=== PATIENT | female | born 1950 | race Caucasian/White ===

== ENCOUNTER 2016-12-21 00:29 | Inpatient (IN) ==
[2016-12-21 00:54] LABS: Basophils # 0.1 K/mcL (0.0-0.2); Basophils % 0.2 %; Eosinophils % 0.1 %; Hematocrit 38.5 % (35.3-44.9); Hemoglobin 12.1 g/dL (11.5-15.4); Immature Granulocytes % 0.6 % (0-4); Immature Platelets 1.4 % (1.1-6.1); Lymphocytes % 8.8 %; Mean Corpuscular HGB Conc 31.4 g/dL (31.6-35.5); Mean Corpuscular Hemoglobin 25.5 pg (28.0-33.3); Mean Corpuscular Volume 81.2 fL (83.0-100.0); Mean Platelet Volume 8.3 fL (9.4-12.4); Monocytes # 1.2 K/mcL (0.0-1.3); Monocytes % 5.2 %; Neutrophils # 19.3 K/mcL (1.6-8.9); Platelet Count 355 K/mcL (140-400); Red Blood Count 4.74 M/mcL (3.82-4.97); Red Cell Distribution Width 14.9 % (11.5-14.5); Segmented Neutrophils % 85.1 %
[2016-12-21 01:07] LABS: BUN/Creatinine Ratio 19 (6-26); Blood Urea Nitrogen 20 mg/dL (7-20); Calcium 9.9 mg/dL (8.6-10.8); Carbon Dioxide 27 mEq/L (19-29); Chloride 98 mEq/L (98-109); Glucose 100 mg/dL (70-99); Osmolality,Calculated 287 (280-300); Potassium 3.5 mEq/L (3.5-4.5); Sodium 137 mEq/L (136-145); eGFR For African Americans > 60 (> 60); eGFR For Non-African Americans 53 (> 60)
[2016-12-21] MEDS ORDERED: Ipratropium/Albuterol Neb 3 ML IH ONE (01:25)
[2016-12-21] MEDS ORDERED: methylPREDNISolone 125 MG/2 ML VIAL IVP ONE (01:26)
[2016-12-21] MEDS ORDERED: 0.9 % Sodium Chloride 1,000 ML IVC ONE ×2 (01:27→02:22)
[2016-12-21 02:07] LABS: Phosphorous 3.5 mg/dL (2.3-4.7)
[2016-12-21] MEDS ORDERED: Levofloxacin 750 MG/150 ML 750 MG/150 ML BAG IVPB ONE (03:52)
--- NOTE | 2016-12-21 04:02 | Emergency Department Note ---
Disposition Clinical Impression: Acute exacerbation of chronic obstructive airways disease, Uncontrolled persistent asthma Disposition: Admitted As Inpatient Condition: Good Time of Disposition: 04:03 General Adult HPI - General Chief complaint: ED Shortness of Breath/Dyspnea Stated complaint: sussy asthma Time Seen by Provider: 12/21/16 01:23 Source: patient Mode of arrival: ambulatory Limitations: no limitations Nursing Notes Reviewed: Yes Vital Signs Reviewed: Yes - History of Present Illness HPI Narrative: 1 week history of increasing shortness of breath. Does have a history of asthma has been using albuterol inhalers with no relief. Is on oxygen at home on 2 L still short of breath. States she has a productive cough that is chronic with a yellow to white sputum. Denies any fevers or chills. Denies any chest pain. Pain Scale: 0 - Related Data Home Medications Medication Instructions Recorded Confirmed Albuterol Sulfate [Ventolin Hfa] 2 puff IH Q4H PRN 11/19/15 06/09/16 Cetirizine HCl [Zyrtec] 10 mg PO DAILY 11/19/15 06/09/16 Cholecalciferol (Vitamin D3) 400 unit PO DAILY 11/19/15 06/09/16 [Vitamin D3] Esomeprazole Magnesium [Nexium] 20 mg PO DAILY 11/19/15 06/09/16 Fluticasone Propionate Nasal 1 spray NS DAILY 11/19/15 06/09/16 [Flonase] Gabapentin [Neurontin] 300 mg PO TID 11/19/15 06/09/16 Lisinopril [Zestril] 5 mg PO DAILY 11/19/15 06/09/16 Mometasone/Formoterol [Dulera 200 2 puff IH BID 11/19/15 06/09/16 Mcg/5 Mcg Inhaler] Montelukast [Singulair] 10 mg PO DAILY 11/19/15 06/09/16 Alendronate Sodium [Fosamax] 70 mg PO GARCIA 02/26/16 06/09/16 Calcium Citrate/Vitamin D3 1 tab PO DAILY 02/26/16 06/09/16 [Calcium Citrate with D Tablet] Ferrous Gluconate [Iron] 256 mg PO DAILY 02/26/16 06/09/16 predniSONE [PredniSONE] 10 mg PO DAILY PRN 02/26/16 06/09/16 Albuterol Neb [Proventil Neb] 2.5 mg IH TID PRN 06/09/16 06/09/16 Allergies Allergy/AdvReac Type Severity Reaction Status Date / Time bacitracin Allergy Rash Verified 06/09/16 07:56 [From Neosporin ([id number])] doxycycline Allergy Rash Verified 06/09/16 07:56 Neomycin Allergy Rash Verified 06/09/16 07:56 [From Neosporin ([id number])] polymyxin B Allergy Rash Verified 06/09/16 07:56 [From Neosporin ([id number])] Sulfa (Sulfonamide Allergy Rash Verified 06/09/16 07:56 Antibiotics) All systems ED: reviewed and negative except as stated. Constitutional: Denies: fever, chills ENT ED: Reports: congestion (Nasal). Denies: throat pain Cardiovascular: Denies: chest pain, palpitations, syncope Respiratory: Reports: cough, dyspnea (For one week), wheezes (Uses inhalers at home.), sputum production (Yellow to light. Normal for her.) Gastrointestinal: Denies: abdominal pain, nausea, vomiting, diarrhea, hematemesis, melena, hematochezia Genitourinary: Denies: urgency, dysuria, frequency, hematuria Musculoskeletal: Denies: back pain, neck pain Integumentary: Denies: rash, abrasion Neurological: Denies: headache, weakness Past Medical History - Past Medical History Attestation: Yes The following information was validated with the patient. Medical history: Reports: asthma, GERD, hypertension, thyroid disease Surgical history: Reports: orthopedic, other Psychiatric history: Reports: no psych history - Social History Smoking Status: Never smoker Smokeless Tobacco Status: No Alcohol use: Reports: none Drug use: Reports: none Physical Exam - General Limitations: no limitations General appearance: alert, in distress (Moderate respiratory distress.) - Head Head exam: atraumatic, normocephalic - Eye Eye exam: Present: normal appearance, PERRL, EOMI. Absent: scleral icterus - ENT ENT exam: normal exam, normal oropharynx, mucous membranes moist - Neck Neck exam: Present: normal inspection, full ROM, trachea midline - Chest Chest inspection: Present: normal inspection, symmetric chest wall rise. Absent : tenderness - Respiratory Respiratory exam: Present: respiratory distress (Moderate), wheezes (Diffusely) , accessory muscle use - Cardiovascular Cardiovascular exam: Present: normal rhythm, tachycardia, normal heart sounds - Abdominal Exam Abdominal exam: Present: soft, Non-Tender, normal bowel sounds. Absent: tenderness, distention, guarding, rebound, rigidity, organomegaly - Extremities Exam Extremities exam: Present: normal inspection, full ROM, normal capillary refill. Absent: tenderness, pedal edema - Back Exam Back exam: Present: normal inspection, full ROM. Absent: tenderness, CVA tenderness (R), CVA tenderness (L) - Neurological Exam Neurological exam: Present: alert, oriented X3 - Psychiatric Psychiatric exam: Present: normal affect, normal mood - Skin Skin exam: Present: warm, dry, intact, normal color. Absent: rash, cyanosis Course Course Narrative: The patient brought back to the room does appear to be in respiratory distress. She is wheezing diffusely. She states she has a history of very bad asthma with a touch of COPD. She has had a thermal bronchial ablation for this. She states that this all started about a week ago she has had a productive cough with white to yellowish sputum. She states this is not abnormal for her to have. She states the last time she was on steroids was over a month ago. She denies any fevers or chills. She denies any chest pain. She reports that she wears 2 L of oxygen at home when she needs that. She is maintaining an oxygen saturation in the low 90s on 4 L. She was given a triple DuoNeb and steroids. This is patient's respiratory distress however she was still maintaining an oxygen saturation in the low 90s on 4 L. She does appear in mild respiratory distress at all times. Her lung sounds have cleared up after the DuoNeb's. There is no signs of pneumonia on her chest x-ray however she does have an elevated white blood cell count. Patient has no signs of peripheral edema. Initially patient had diffuse wheezing throughout all of her lung tran. On reexamination after the DuoNeb this was cleared. Her heart sounds are normal however tachycardic. Abdomen is soft and nontender. She denies any nausea vomiting or diarrhea. She does report some nasal congestion. We will admit patient to the hospital for COPD and asthma exacerbation. Patient is agreeable to this. - Consultations Consultation #1: Dr Be accepted patient in stable condition. Time: 03:30 Vital Signs Temperature 99.2 F 12/21/16 00:31 Pulse Rate 126 12/21/16 00:31 Respiratory Rate 28 12/21/16 00:31 Blood Pressure 147/82 12/21/16 00:31 O2 Sat by Pulse Oximetry 90 12/21/16 00:31 Temperature 98.6 F 12/21/16 04:42 Pulse Rate 101 12/21/16 04:42 Respiratory Rate 18 12/21/16 04:42 Blood Pressure 137/73 12/21/16 04:42 O2 Sat by Pulse Oximetry 92 12/21/16 04:42 Oxygen Delivery Oxygen Delivery Nasal Cannula Medical Decision Making - Medical Records Medical records reviewed: Yes I reviewed the patient's medical records. - Lab Data Lab results reviewed: Yes I reviewed the patient's lab results. Result diagrams: 12/21/16 00:48 12/21/16 00:48 Lab Results 12/21/16 12/21/16 12/21/16 Range/Units 00:48 00:48 00:48 WBC 22.7 H (4.3-11.1) K/mcL RBC 4.74 (3.82-4.97) M/mcL Hgb 12.1 (11.5-15.4) g/dL Hct 38.5 (35.3-44.9) % MCV 81.2 L (83.0-100.0) fL MCH 25.5 L (28.0-33.3) pg MCHC 31.4 L (31.6-35.5) g/dL RDW 14.9 H (11.5-14.5) % Plt Count 355 (140-400) K/mcL MPV 8.3 L (9.4-12.4) fL Immature Gran % 0.6 (0-4) % Seg Neutrophils % 85.1 % Lymphocytes % 8.8 % Monocytes % 5.2 % Eosinophils % 0.1 % Basophils % 0.2 % Neutrophils # 19.3 H (1.6-8.9) K/mcL Lymphocytes # 2.0 (0.6-4.6) K/mcL Monocytes # 1.2 (0.0-1.3) K/mcL Eosinophils # 0.0 (0.0-0.6) K/mcL Basophils # 0.1 (0.0-0.2) K/mcL Immature Plt Fraction 1.4 (1.1-6.1) % Sodium 137 (136-145) mEq/L Potassium 3.5 (3.5-4.5) mEq/L Chloride 98 (98-109) mEq/L Carbon Dioxide 27 (19-29) mEq/L BUN 20 (7-20) mg/dL Creatinine 1.04 (0.57-1.11) mg/dL Est GFR ( Amer) > 60 (> 60) Est GFR (Non-Af Amer) 53 L (> 60) BUN/Creatinine Ratio 19 (6-26) Glucose 100 H (70-99) mg/dL Calculated Osmolality 287 (280-300) Lactic Acid (0.5-2.2) mmol/L Calcium 9.9 (8.6-10.8) mg/dL Phosphorus (2.3-4.7) mg/dL Magnesium (1.6-2.6) mg/dL Troponin I 0.00 (0-0.03) ng/mL B-Natriuretic Peptide (0-100) pg/mL 12/21/16 12/21/16 12/21/16 Range/Units 00:48 01:47 01:47 WBC (4.3-11.1) K/mcL RBC (3.82-4.97) M/mcL Hgb (11.5-15.4) g/dL Hct (35.3-44.9) % MCV (83.0-100.0) fL MCH (28.0-33.3) pg MCHC (31.6-35.5) g/dL RDW (11.5-14.5) % Plt Count (140-400) K/mcL MPV (9.4-12.4) fL Immature Gran % (0-4) % Seg Neutrophils % % Lymphocytes % % Monocytes % % Eosinophils % % Basophils % % Neutrophils # (1.6-8.9) K/mcL Lymphocytes # (0.6-4.6) K/mcL Monocytes # (0.0-1.3) K/mcL Eosinophils # (0.0-0.6) K/mcL Basophils # (0.0-0.2) K/mcL Immature Plt Fraction (1.1-6.1) % Sodium (136-145) mEq/L Potassium (3.5-4.5) mEq/L Chloride (98-109) mEq/L Carbon Dioxide (19-29) mEq/L BUN (7-20) mg/dL Creatinine (0.57-1.11) mg/dL Est GFR ( Amer) (> 60) Est GFR (Non-Af Amer) (> 60) BUN/Creatinine Ratio (6-26) Glucose (70-99) mg/dL Calculated Osmolality (280-300) Lactic Acid 0.9 (0.5-2.2) mmol/L Calcium (8.6-10.8) mg/dL Phosphorus 3.5 (2.3-4.7) mg/dL Magnesium 2.0 (1.6-2.6) mg/dL Troponin I (0-0.03) ng/mL B-Natriuretic Peptide 10 (0-100) pg/mL - Radiology Data Radiology results reviewed: Yes I reviewed the patient's radiology results. Chest X-Ray 12/21/16 00:35 IMPRESSION: No acute disease. D/ / Avi Abraham MD / Avi Abraham MD Interpreting Provider: Avi Abraham MD - EKG Data EKG #1 EKG attestation: Yes I reviewed and interpreted this EKG. EKG results narrative: Time: 00: 44 Sinus tachycardia at a rate of 124. MN interval is 120. Respirations 89. QT is 336. QTC is 410. No signs of acute ischemia however there is a significant amount of artifact. No significant changes from previous EKG dated 01/04/2016. She was tachycardic at that time as well. EKG #2 EKG attestation: Yes I reviewed and interpreted this EKG. EKG results narrative: Time: 2: 26 Sinus tachycardia at a rate of 1:15. MN interval is 127. QRS duration is 95. QT is 292. QTC is 360. No signs of acute ischemia. No significant changes from previous EKG dated 01/04/2016. Attestation Statement - Attestation Attestation: I personally interviewed and examined this patient and my medical decision- making was reviewed with the ED Resident Physician, Dr. Zuleta. I agree with the documented findings, disposition and treatment plan as described except to the extent set forth below. Patient is a 58-year-old white female with a history of COPD/asthma who presents to the emergency department with gradual worsening shortness of breath over the past 24 hours. Patient denies any fevers or chills, no production of sputum, no chest pain heaviness or pressure, no nausea vomiting or posttussive emesis. Patient has no prior cardiac history. She is on oxygen at home on an as-needed basis. She states the last time she was on steroids was possibly 2 months ago. She has had no recent hospitalizations. She arrived tachycardic with a sinus tachycardia and hypoxia on room air. Patient received IV fluids on arrival for tachycardia was placed on continuous monitoring and pulse ox and placed on nasal cannula oxygen with improvement of her O2 sats to 96%. Patient received breathing treatments, steroids IV, lab evaluation as well as 2 view chest x-ray for further evaluation. EKG showed a sinus tachycardia with no acute ST or T-wave changes. I agree with Dr. Zuleta physical exam findings as documented. Patient was some improvement following aerosols and steroids IV. Patient does have a significant leukocytosis with left shift. Patient denies any recent steroid use or chronic steroid use. Chest x-ray shows no acute infiltrates or abnormalities. Patient was started on IV antibiotics and admitted for further evaluation and treatment of an acute exacerbation of her COPD/asthma. Patient' s tachycardia improved after first liter of fluids, second liter was initiated. Discussed case with hospitalist who accepted patient for admission.
[2016-12-21] MEDS ORDERED: Acetaminophen 325 MG TABLET PO PRN (04:23)
[2016-12-21] MEDS ORDERED: Ondansetron 4 MG/2 ML VIAL IVP PRN (04:23)
[2016-12-21] MEDS ORDERED: Naloxone 0.4 MG/ML INJ IVP PRN (04:23)
[2016-12-21] MEDS ORDERED: 0.9 % Sodium Chloride 1,000 ML IVC SCH (04:30)
--- NOTE | 2016-12-21 04:54 | Internal Med History&Physical ---
Date of Encounter: 12/21/16 Time of Encounter: 04:52 Assessment and Plan (1) Asthma Current visit: Yes Status: Acute Patient has severe persistent asthma for which she requires steroids most of the days. She uses breathing treatments at home every 6 hours [id number]. She has had worsening of her symptoms over the last 1-1/2 weeks brought on by an upper respiratory illness which is likely a viral infection. Examination reveals clear breath sounds with reduced breath sounds bilaterally. No wheezing present. Patient has tachycardia. Not using accessory muscles of respiration. Laboratory data reveals leukocytosis. Chest x-ray is personally reviewed and does not reveal any infiltrate. Patient be admitted to inpatient status. Expect the patient to be in the hospital for at least 2 midnights. High risk due to risk of worsening asthma exacerbation and respiratory failure which may require intubation and mechanical ventilation. Expected discharge disposition is to home. Patient will be placed on intravenous steroids. These will be tapered to by mouth route depending on her clinical progress. Patient does not have any infiltrate on the x-ray suggestive of pneumonia. No fever or chills. Leukocytosis is most likely related to asthma exacerbation. Patient has received 1 dose of Levaquin in the emergency department. We will hold off on further antibiotic therapy and monitor the patient off antibiotics. If the patient's condition worsens clinically, we will consider starting the patient is on antibiotic therapy. DuoNeb's [id number] Qualifiers: Asthma severity: severe persistent Asthma complication type: with acute exacerbation Qualified Code(s): J45.51 - Severe persistent asthma with (acute ) exacerbation (2) Respiratory failure Current visit: Yes Status: Acute Patient has oxygen at home that she uses only as needed. Currently, patient has hypoxia which has required the need for oxygen supplementation around the clock. This is due to asthma exacerbation. Management as above. Qualifiers: Chronicity: acute Respiratory failure complication: hypoxia Qualified Code(s): J96.01 - Acute respiratory failure with hypoxia (3) HTN (hypertension) Current visit: Yes Status: Chronic Control blood pressure. Continue home medication of HCTZ. Qualifiers: Hypertension type: essential hypertension Qualified Code(s): I10 - Essential (primary) hypertension Internal Medicine - H&P: HPI Chief complaint: Shortness of breath Admitted From: Emergency Dept Plans for Post Hospital Care: Home History of present illness: Ms. Saha is a 66 year old female with a history of severe persistent asthma who underwent endobronchial [place] [address] Harden presents to the emergency department due to shortness of breath. Patient states that the current episode started about one and half weeks ago with runny nose, nasal congestion, postnasal drip. Later, she started having cough which was mostly dry but was also productive of yellow and white thick sputum. She also reports shortness of breath that worsens with exertion. She states that she has a pulse oximeter at home. Since the bronchial thermoplasty, her saturations have been 98% on room air. However, over the last 2 days, with minimal activity, her saturations have dropped into the 80s and they returned to 92% with rest. She has oxygen at home which she uses only as needed. She has required to use oxygen over the last 2 days. She reports chest tightness but denies any chest pain. She reports feeling lightheaded which worsens with activity. She reports some headache. She denies any fever or chills. She denies any abdominal pain, nausea, vomiting, diarrhea or constipation. She reports palpitations. She denies any recent weight changes or changes in her appetite. She denies any urinary symptoms or swelling in her legs. She states that she has prednisone at home that she uses as needed. Whenever she has a flareup, she starts taking for 10 mg tablets and eventually tapers herself off it as instructed by her paint and table edger. However, during the current episode that started 1-1/2 weeks ago, she did not feel the need to start steroids and attributes the current worsening to that decision. Past Med Surg Social Fam HX - Past Medical History Medical history: asthma, GERD, hypertension, thyroid disease Psychiatric history: no psych history - Past Surgical History Surgical History: orthopedic, other - Social History Smoking Status: Never smoker Smokeless Tobacco Status: No Alcohol use: none Drug use: none Occupational status: retired Current living situation: Home - Independent Activity Level: Independent ambulation Recent Out of Country Travel Within the Last 8 Weeks: No Exposure or Possible Exposure to Illness During Travel: No - Family History Father Living Status: Hx Family Cardiac Disorders: Yes Hx Family Respiratory Disorders: Yes (asthma, lung disease) Mother Living Status: Hx Family Cardiac Disorders: Yes Internal Medicine - H&P: Meds Albuterol Sulfate [Ventolin Hfa] 2 puff IH Q4H PRN 11/19/15 [History] Cetirizine HCl [Zyrtec] 10 mg PO DAILY 11/19/15 [History] Cholecalciferol (Vitamin D3) [Vitamin D3] 400 unit PO DAILY 11/19/15 [History] Esomeprazole Magnesium [Nexium] 20 mg PO DAILY 11/19/15 [History] Fluticasone Propionate Nasal [Flonase] 1 spray NS DAILY 11/19/15 [History] Gabapentin [Neurontin] 300 mg PO TID 11/19/15 [History] Lisinopril [Zestril] 5 mg PO DAILY 11/19/15 [History] Mometasone/Formoterol [Dulera 200 Mcg/5 Mcg Inhaler] 2 puff IH BID 11/19/15 [ History] Montelukast [Singulair] 10 mg PO DAILY 11/19/15 [History] Alendronate Sodium [Fosamax] 70 mg PO GARCIA 02/26/16 [History] Calcium Citrate/Vitamin D3 [Calcium Citrate with D Tablet] 1 tab PO DAILY [History] Ferrous Gluconate [Iron] 256 mg PO DAILY 02/26/16 [History] predniSONE [PredniSONE] 10 mg PO DAILY PRN 02/26/16 [History] Albuterol Neb [Proventil Neb] 2.5 mg IH TID PRN 06/09/16 [History] Allergies bacitracin [From Neosporin ([id number])] Allergy (Verified 06/09/16 07:56) Rash doxycycline Allergy (Verified 06/09/16 07:56) Rash Neomycin [From Neosporin ([id number])] Allergy (Verified 06/09/16 07:56) Rash polymyxin B [From Neosporin ([id number])] Allergy (Verified 06/09/16 07:56) Rash Sulfa (Sulfonamide Antibiotics) Allergy (Verified 06/09/16 07:56) Rash All Systems PM: A 10-system review of systems was performed and is negative for pertinent findings except as documented above in the HPI. Review of systems: 10 systems have been reviewed and are negative except as mentioned in the history of present illness - Constitutional Vitals: Temp Pulse Resp BP Pulse Ox 98.6 F 101 18 137/73 92 12/21/16 04:42 05/31/17 04:42 12/21/16 04:42 12/21/16 04:42 12/21/16 04:42 Exam: Gen.: Lying in bed. Mild to moderate distress. Eyes: Pupils equal, round and reactive to light. Extraocular muscles intact. ENT: Moist mucous membranes. No oropharyngeal erythema or discharge. Chest: Clear to auscultation bilaterally. No adventitious sounds present. Reduced air entry bilaterally. Not using accessory muscles of respiration. CVS: First and second heart sounds present. No murmurs, rubs or gallops. Tachycardia present. Abdomen: Soft, nontender, nondistended. Bowel sounds present. No hepatosplenomegaly. Skin: No decubitus ulcers appreciated. ENERGY PROJECT ENGINEER: No focal neuro deficits present. Psychiatric: Alert, awake and oriented to time, place and person. Lymphatic system: No lymphadenopathy appreciated Internal Med - H&P Results - Labs CBC & Chem 7: 12/21/16 00:48 12/21/16 00:48 - EKG Data -: EKG Interpreted by Myself EKG shows normal: sinus rhythm Rate: tachycardia - Diagnostic Studies Chest x-ray Status: image reviewed by me (No acute infiltrates or abnormalities detected)
[2016-12-21] MEDS: methylPREDNISolone 125 MG/2 ML VIAL IVP SCH ×2 (06:15→17:18)
[2016-12-21] MEDS: *HR* Heparin 5,000 UNIT/ML VIAL SQ SCH ×3 (06:16→21:20)
[2016-12-21] MEDS: Loratadine 10 MG TABLET PO SCH (08:07)
[2016-12-21] MEDS: hydroCHLOROthiazide 25 MG TABLET PO SCH (08:08)
[2016-12-21 08:20] LABS: Basophils % 0.2 %; Hematocrit 33.3 % (35.3-44.9); Lymphocytes # 0.3 K/mcL (0.6-4.6); Lymphocytes % 1.4 %; Mean Corpuscular HGB Conc 30.9 g/dL (31.6-35.5); Mean Corpuscular Hemoglobin 25.5 pg (28.0-33.3); Mean Corpuscular Volume 82.4 fL (83.0-100.0); Mean Platelet Volume 8.5 fL (9.4-12.4); Monocytes # 0.2 K/mcL (0.0-1.3); Neutrophils # 17.7 K/mcL (1.6-8.9); Platelet Count 250 K/mcL (140-400); Red Blood Count 4.04 M/mcL (3.82-4.97); Red Cell Distribution Width 14.9 % (11.5-14.5); Segmented Neutrophils % 96.4 %
[2016-12-21 08:21] LABS: Hemoglobin 10.3 g/dL (11.5-15.4)
[2016-12-21 08:28] LABS: BUN/Creatinine Ratio 20 (6-26); Blood Urea Nitrogen 17 mg/dL (7-20); Calcium 8.5 mg/dL (8.6-10.8); Carbon Dioxide 27 mEq/L (19-29); Chloride 101 mEq/L (98-109); Glucose 211 mg/dL (70-99); Magnesium 1.9 mg/dL (1.6-2.6); Osmolality,Calculated 290 (280-300); Phosphorous 3.1 mg/dL (2.3-4.7); Potassium 3.5 mEq/L (3.5-4.5); Sodium 136 mEq/L (136-145); eGFR For African Americans > 60 (> 60); eGFR For Non-African Americans > 60 (> 60)
[2016-12-21] MEDS: Ipratropium/Albuterol Neb 3 ML IH SCH ×3 (10:19→22:31)
[2016-12-21] MEDS ORDERED: Fluticasone Propionate Nasal 50 MCG/SPRAY BOTTLE NS PRN (11:16)
--- NOTE | 2016-12-21 11:16 | Internal Med Progress Note ---
Date of Encounter: 12/21/16 Time of Encounter: 11:14 - Subjective Interval history: No distress at this time - Constitutional Vitals: Temp Pulse Resp BP Pulse Ox 97.8 F 91 18 124/69 93 12/21/16 07:03 12/21/16 07:03 12/21/16 07:03 12/21/16 10:00 12/21/16 07:58 General appearance: Present: cooperative, A&O X 3, pleasant, no acute distress ( over weight), answers questions appropriately - Head Head exam: Present: atraumatic, normocephalic - Eye Eye exam: Present: normal appearance, conjuntiva pink, sclera anicteric - Respiratory Respiratory exam: Present: CTAB. Absent: respiratory distress, wheezes - Cardiovascular Cardiovascular exam: Present: RRR, +S1, +S2. Absent: diastolic murmur, gallop, rubs, systolic murmur - GI/Abdominal GI/Abdominal exam: Present: normal bowel sounds, soft, no peritoneal signs. Absent: distended, tenderness - Extremities Exam Extremities exam: Present: warm, radial pulses palpable and symetrical. Absent : calf tenderness, pedal edema - Neurological Exam Neurological exam: Present: alert, oriented X3 - Psychiatric Psychiatric exam: Present: normal affect, normal mood Internal Medicine: Result - Labs CBC & Chem 7: 12/21/16 07:58 12/21/16 07:58 Labs: Short CBC 12/21/16 Range/Units 07:58 WBC 18.3 H (4.3-11.1) K/mcL Hgb 10.3 L D (11.5-15.4) g/dL Hct 33.3 L (35.3-44.9) % Plt Count 250 (140-400) K/mcL Neutrophils # 17.7 H (1.6-8.9) K/mcL BMP 12/21/16 07:58 Sodium 136 Potassium 3.5 Chloride 101 Carbon Dioxide 27 BUN 17 Creatinine 0.85 Glucose 211 H Calcium 8.5 L Consult Discharge Plan - Plan Referrals: Ivy Lambert, [facility] [Primary Care Provider] -
[2016-12-21 11:56] LABS: Hemoglobin A1C 5.5 %
[2016-12-21 12:15] LABS: Bilirubin,Urine Negative (Negative); Blood,Urine Negative (Negative); Clarity,Urine Clear (Clear); Color,Urine Yellow (Yellow); Glucose,Urine (UA) Normal (Normal); Ketones,Urine Negative (Negative); Leukocyte Esterase,Urine Small (Negative); Nitrite,Urine Negative (Negative); PH,Urine 5.5 pH Units (5.0-8.0); Protein,Urine Negative (Neg-Trace); Specific Gravity,Urine 1.014 (1.010-1.025); Urobilinogen,Urine Normal (Normal)
[2016-12-21 12:33] LABS: Squamous Epithelial Cell,Urine Few per lpf (None-Few); WBC,Urine 0-3 per hpf (0-3)
[2016-12-21 12:34] LABS: RBC,Urine 0-3 per hpf (0-3)
[2016-12-21] MEDS ORDERED: Albuterol 2.5 MG/3 ML NEBULIZER IH PRN (12:37)
--- NOTE | 2016-12-21 15:08 | Event Note ---
Date of Encounter: 12/21/16 Time of Encounter: 11:14 Patient seen and examined at bedside. rEsting in bed and reports of feeling better. admitted for asthma exacerbation will continue IV steroids no signs of infectious etiology present continue to monitor off abx O2 supplementation as needed will continue to monitor
[2016-12-21] MEDS: Gabapentin 300 MG CAPSULE PO SCH ×2 (15:31→21:20)
--- NOTE | 2016-12-21 15:53 | Electrocardiograph Report ---
[address] [address] Test Date: 2016-12-21 Pat Name: Basia Saha Department: 104 Room: 2A25 Gender: F Job Developer: DAWIT : 1950 Requested By: Alejandra Rodriguez Order Number: [id number] Reading MD: Joshua Zabala MD Measurements Intervals [place] Rate: 124 P: 58 OR: 120 QRS: 64 QRSD: 89 T: -2 QT: 336 QTc: 410 Interpretive Statements SINUS TACHYCARDIA BASELINE ARTIFACT COMPLICATES ACCURATE INTERPRETATION Electronically Signed On 12-21-2016 15:51:34 EDT by Joshua Zabala MD
--- NOTE | 2016-12-21 15:54 | Electrocardiograph Report ---
[address] [place], [place] [address] Test Date: 2016-12-21 Pat Name: Basia Saha Department: 105 Room: 2A25 Gender: F Roller Mill Tender: EKP : 1950 Requested By: Mragie Zuleta Order Number: [id number] Reading MD: Joshua Zabala MD Measurements Intervals [place] Rate: 115 P: 56 RI: 127 QRS: 59 QRSD: 95 T: 3 QT: 292 QTc: 360 Interpretive Statements SINUS TACHYCARDIA WITH OCCASIONAL SUPRAVENTRICULAR PREMATURE COMPLEXES Electronically Signed On 12-21-2016 15:52:50 EDT by Joshua Zabala MD
[2016-12-22 03:43] LABS: Basophils % 0.1 %; Hematocrit 33.9 % (35.3-44.9); Hemoglobin 10.4 g/dL (11.5-15.4); Immature Granulocytes % 1.7 % (0-4); Lymphocytes # 0.6 K/mcL (0.6-4.6); Lymphocytes % 3.1 %; Mean Corpuscular HGB Conc 30.7 g/dL (31.6-35.5); Mean Corpuscular Hemoglobin 25.2 pg (28.0-33.3); Mean Corpuscular Volume 82.3 fL (83.0-100.0); Mean Platelet Volume 8.3 fL (9.4-12.4); Monocytes # 0.6 K/mcL (0.0-1.3); Monocytes % 3.1 %; Neutrophils # 18.1 K/mcL (1.6-8.9); Platelet Count 262 K/mcL (140-400); Red Blood Count 4.12 M/mcL (3.82-4.97); Red Cell Distribution Width 14.6 % (11.5-14.5)
[2016-12-22] MEDS: Ipratropium/Albuterol Neb 3 ML IH SCH ×4 (03:52→21:32)
[2016-12-22 03:56] LABS: Magnesium 2.1 mg/dL (1.6-2.6)
[2016-12-22 03:59] LABS: Alanine Aminotransferase 11 Units/L (0-55); Albumin 2.7 g/dL (3.5-5.0); Albumin/Globulin Ratio 0.7 (1.1-2.2); Alkaline Phosphatase 75 Units/L (38-126); Aspartate Amino Transferase 9 Units/L (5-34); BUN/Creatinine Ratio 17 (6-26); Bilirubin,Total 0.2 mg/dL (0.2-1.2); Blood Urea Nitrogen 17 mg/dL (7-20); Calcium 9.3 mg/dL (8.6-10.8); Carbon Dioxide 28 mEq/L (19-29); Chloride 100 mEq/L (98-109); Globulin 3.7 g/dL (2.4-3.5); Glucose 181 mg/dL (70-99); Osmolality,Calculated 290 (280-300); Potassium 3.5 mEq/L (3.5-4.5); Sodium 137 mEq/L (136-145); Total Protein 6.4 g/dL (6.0-8.3); eGFR For African Americans > 60 (> 60); eGFR For Non-African Americans 56 (> 60)
[2016-12-22] MEDS: *HR* Heparin 5,000 UNIT/ML VIAL SQ SCH ×3 (06:52→21:18)
[2016-12-22] MEDS: methylPREDNISolone 125 MG/2 ML VIAL IVP SCH ×2 (06:52→17:19)
[2016-12-22] MEDS: Loratadine 10 MG TABLET PO SCH (08:43)
[2016-12-22] MEDS: Gabapentin 300 MG CAPSULE PO SCH ×3 (08:43→21:18)
[2016-12-22] MEDS: hydroCHLOROthiazide 25 MG TABLET PO SCH (08:43)
[2016-12-22] MEDS ORDERED: Levofloxacin 750 MG/150 ML 750 MG/150 ML BAG IVPB SCH (09:00)
--- NOTE | 2016-12-22 15:03 | Internal Med Progress Note ---
Date of Encounter: 12/22/16 Time of Encounter: 14:56 - Subjective Interval history: Patient seen and examined at bedside. REsting in bed and reports of feeling better however continues to need O2 support but states at home she is only on as needed basis. Denies any fevers or chills. Vikram any urinary symptoms. No overnight issues reported. Assessment and Plan (1) Asthma Current visit: Yes Status: Acute Continue IV steroids Will add Levaquin 750mg IV qdaily given increased O2 demand and worsening leukocytosis will f/u blood cultures Likely d/c in am with PO steroids and abx if remains clinically stable overnight Qualifiers: Asthma severity: severe persistent Asthma complication type: with acute exacerbation Qualified Code(s): J45.51 - Severe persistent asthma with (acute ) exacerbation (2) Respiratory failure Current visit: Yes Status: Acute Improving This is due to asthma exacerbation. Management as above. Qualifiers: Chronicity: acute Respiratory failure complication: hypoxia Qualified Code(s): J96.01 - Acute respiratory failure with hypoxia (3) HTN (hypertension) Current visit: Yes Status: Chronic BP within acceptable range continue home meds Qualifiers: Hypertension type: essential hypertension Qualified Code(s): I10 - Essential (primary) hypertension (4) DVT prophylaxis Current visit: Yes Status: Chronic Heparin SQ - Constitutional Vitals: Temp Pulse Resp BP Pulse Ox 98.3 F 96 16 126/69 96 12/22/16 11:09 12/22/16 11:09 12/22/16 11:09 12/22/16 11:09 12/22/16 11:09 General appearance: Present: cooperative, A&O X 3, no acute distress (overweight ), answers questions appropriately - Head Head exam: Present: atraumatic, normocephalic - Eye Eye exam: Present: normal appearance, conjuntiva pink, sclera anicteric - Respiratory Respiratory exam: Absent: respiratory distress, wheezes - Cardiovascular Cardiovascular exam: Present: RRR, +S1, +S2. Absent: diastolic murmur, gallop, rubs, systolic murmur - GI/Abdominal GI/Abdominal exam: Present: normal bowel sounds, soft, no peritoneal signs. Absent: distended, tenderness - Extremities Exam Extremities exam: Present: warm, radial pulses palpable and symetrical. Absent : calf tenderness, cyanotic, pedal edema - Neurological Exam Neurological exam: Present: alert, oriented X3 - Psychiatric Psychiatric exam: Present: normal affect, normal mood Internal Medicine: Result - Labs CBC & Chem 7: 12/22/16 03:33 12/22/16 03:33 Labs: Short CBC 12/22/16 Range/Units 03:33 WBC 19.6 H (4.3-11.1) K/mcL Hgb 10.4 L (11.5-15.4) g/dL Hct 33.9 L (35.3-44.9) % Plt Count 262 (140-400) K/mcL Neutrophils # 18.1 H (1.6-8.9) K/mcL BMP 12/22/16 03:33 Sodium 137 Potassium 3.5 Chloride 100 Carbon Dioxide 28 BUN 17 Creatinine 0.98 Glucose 181 H Calcium 9.3 Liver Function 12/22/16 Range/Units 03:33 Total Bilirubin 0.2 (0.2-1.2) mg/dL AST 9 (5-34) Units/L ALT 11 (0-55) Units/L Alkaline Phosphatase 75 (38-126) Units/L Albumin 2.7 L (3.5-5.0) g/dL Consult Discharge Plan - Plan Referrals: Ivy Lambert, DEEJAY [Primary Care Provider] - 12/29/16 1:00 pm (Web request 12/21/16)
[2016-12-23 03:27] LABS: Basophils % 0.1 %; Hemoglobin 10.9 g/dL (11.5-15.4); Immature Granulocytes % 3.5 % (0-4); Lymphocytes # 0.7 K/mcL (0.6-4.6); Lymphocytes % 3.3 %; Mean Corpuscular HGB Conc 31.1 g/dL (31.6-35.5); Mean Corpuscular Hemoglobin 25.6 pg (28.0-33.3); Mean Corpuscular Volume 82.2 fL (83.0-100.0); Mean Platelet Volume 8.3 fL (9.4-12.4); Monocytes # 0.7 K/mcL (0.0-1.3); Monocytes % 3.3 %; Neutrophils # 18.6 K/mcL (1.6-8.9); Platelet Count 284 K/mcL (140-400); Red Blood Count 4.26 M/mcL (3.82-4.97); Red Cell Distribution Width 14.7 % (11.5-14.5); Segmented Neutrophils % 89.8 %
[2016-12-23 03:35] LABS: BUN/Creatinine Ratio 24 (6-26); Blood Urea Nitrogen 24 mg/dL (7-20); Calcium 9.4 mg/dL (8.6-10.8); Carbon Dioxide 29 mEq/L (19-29); Chloride 100 mEq/L (98-109); Glucose 137 mg/dL (70-99); Magnesium 2.2 mg/dL (1.6-2.6); Osmolality,Calculated 294 (280-300); Phosphorous 3.6 mg/dL (2.3-4.7); Potassium 3.6 mEq/L (3.5-4.5); Sodium 139 mEq/L (136-145); eGFR For African Americans > 60 (> 60); eGFR For Non-African Americans 54 (> 60)
[2016-12-23] MEDS: Ipratropium/Albuterol Neb 3 ML IH SCH (04:09)
[2016-12-23] MEDS: *HR* Heparin 5,000 UNIT/ML VIAL SQ SCH (06:06)
[2016-12-23] MEDS: methylPREDNISolone 125 MG/2 ML VIAL IVP SCH (06:06)
[2016-12-23 07:31] VITALS: BP 126/68
[2016-12-23] MEDS ORDERED: levoFLOXacin 500 MG TABLET PO SCH (09:00)
--- NOTE | 2016-12-23 09:13 | Discharge Summary ---
Date of Encounter: 12/23/16 Time of Encounter: 09:11 - Discharge Diagnosis (1) Asthma with exacerbation Priority: Primary Status: Acute Qualifiers: Asthma severity: severe persistent Qualified Code(s): J45.51 - Severe persistent asthma with (acute) exacerbation (2) Bronchitis Priority: Secondary Status: Acute (3) Acute on chronic respiratory failure with hypoxemia Priority: Primary Status: Acute (4) HTN (hypertension) Priority: Secondary Status: Chronic Qualifiers: Hypertension type: essential hypertension Qualified Code(s): I10 - Essential (primary) hypertension - Discharge Medications Prescriptions: levoFLOXacin [Levaquin] 750 mg PO DAILY #3 tablet predniSONE [PredniSONE] 40 mg PO DAILY #7 tablet Home Medications: Albuterol Sulfate [Ventolin Hfa] 2 puff IH Q4H PRN 11/19/15 [History] Cetirizine HCl [Zyrtec] 10 mg PO DAILY 11/19/15 [History] Cholecalciferol (Vitamin D3) [Vitamin D3] 400 unit PO DAILY 11/19/15 [History] Esomeprazole Magnesium [Nexium] 20 mg PO DAILY 11/19/15 [History] Fluticasone Propionate Nasal [Flonase] 1 spray NS DAILY 11/19/15 [History] Gabapentin [Neurontin] 300 mg PO TID 11/19/15 [History] Mometasone/Formoterol [Dulera 200 Mcg/5 Mcg Inhaler] 2 puff IH BID 11/19/15 [ History] Montelukast [Singulair] 10 mg PO DAILY 11/19/15 [History] Alendronate Sodium [Fosamax] 70 mg PO GARCIA 02/26/16 [History] Calcium Citrate/Vitamin D3 [Calcium Citrate with D Tablet] 1 tab PO DAILY [History] Ferrous Gluconate [Iron] 256 mg PO DAILY 02/26/16 [History] predniSONE [PredniSONE] 10 mg PO DAILY PRN 02/26/16 [History] Albuterol Neb [Proventil Neb] 2.5 mg IH TID PRN 06/09/16 [History] Oxygen 2 l .ROUTE AD PRN 12/21/16 [History] Vitamin E (Dl,Tocopheryl Acet) [Vitamin E] 400 unit PO DAILY 12/21/16 [History] hydroCHLOROthiazide [Hydrochlorothiazide] 25 mg PO DAILY 12/21/16 [History] levoFLOXacin [Levaquin] 750 mg PO DAILY #3 tablet 12/23/16 [Rx] predniSONE [PredniSONE] 40 mg PO DAILY #7 tablet 12/23/16 [Rx] Allergies/Adverse Reactions: Allergies bacitracin [From Neosporin ([id number])] Allergy (Verified 06/09/16 07:56) Rash doxycycline Allergy (Verified 06/09/16 07:56) Rash Neomycin [From Neosporin ([id number])] Allergy (Verified 06/09/16 07:56) Rash polymyxin B [From Neosporin ([id number])] Allergy (Verified 06/09/16 07:56) Rash Sulfa (Sulfonamide Antibiotics) Allergy (Verified 06/09/16 07:56) Rash Date of admission: 12/21/16 04:23 Primary care physician: Ivy Lambert CNP Discharging clinician: Bria Ayoub Anticipated date of discharge: 12/23/16 - Patient Status Disposition: Home, Self-Care Condition: Good Functional capacity at discharge: independent ambulation Overall status at discharge: patient is back to baseline - Discharge Instructions Follow Up With: Ivy Lambert CNP [Primary Care Provider] - 12/29/16 1:00 pm (Web request 12/21/16) Forms: ED Satisfaction Letter Additional Instructions: Please follow up with your primary care physician within five days after your discharge from the hospital. Please follow up with search advertising strategist within one week after your discharge from the hospital. Please continue to take oral prednisone and antibiotics as prescribed. Resume all your home medications as prescribed by your primary care physician. - Diet and Activity Activity: resume usual activities as tolerated, other (wear oxygen as needed/as directed by your search advertising strategist ) Diet: low salt diet Hospital course: Ms. Saha is a 66 year old female with PMH of severe persistent asthma, GERD, hypertension who was admitted for acute respiratory distress secondary to asthma exacerbation. She was started on IV steroids, bronchodilators, and IV abx to which she responded well. She is currently on as needed home oxygen and was requiring continuous O2 support prior to her hospitalization. At this time, her respiratory status has improved and is back to baseline. She is saturating well on room air and reports of not using O2 overnight. She is hemodynamically stable and will be discharged to home with follow up with primary care physician and search advertising strategist. She is to continue oral steroids and abx. Patient demonstrates understanding of her diagnosis and agrees with the discharge care and plan. - Time Spent with Patient Total time spent providing and/or coordinating discharge services: Less than 30 minutes - Constitutional Vitals: Temp Pulse Resp BP Pulse Ox 98.0 F 79 18 126/68 94 12/23/16 07:29 12/23/16 07:29 12/23/16 07:29 12/23/16 07:29 12/23/16 07:29 General appearance: Present: cooperative, A&O X 3, no acute distress (overweight ), answers questions appropriately - Head Head exam: Present: atraumatic, normocephalic - Eye Eye exam: Present: normal appearance, conjuntiva pink, sclera anicteric - Respiratory Respiratory exam: Present: CTAB. Absent: accessory muscle use, rales, rhonchi, wheezes - Cardiovascular Cardiovascular exam: Present: RRR, +S1, +S2. Absent: diastolic murmur, gallop, rubs, systolic murmur - GI/Abdominal GI/Abdominal exam: Present: normal bowel sounds, soft, no peritoneal signs. Absent: distended, tenderness - Extremities Exam Extremities exam: Present: warm, radial pulses palpable and symetrical. Absent : calf tenderness, pedal edema - Neurological Exam Neurological exam: Present: alert, oriented X3 - Psychiatric Psychiatric exam: Present: normal affect, normal mood
[2016-12-23] MEDS: Loratadine 10 MG TABLET PO SCH (09:34)
[2016-12-23] MEDS: hydroCHLOROthiazide 25 MG TABLET PO SCH (09:34)
[2016-12-23] MEDS: Gabapentin 300 MG CAPSULE PO SCH (09:34)
[2016-12-24] MEDS ORDERED: predniSONE 20 MG TABLET PO SCH (09:00)
== END 2016-12-23 10:13 | disposition home or self-care (01) | DRG 202 ==
LOC: 2ANU 00:29 → EMEROO 00:29 → 2ANU 04:15
PROVIDERS: ADMIT Internal Medicine Sleep Medicine; ATTEND Internal Medicine

== ENCOUNTER 2021-01-21 07:30 | Observation (INO) ==
[2021-01-21] MEDS ORDERED: Ipratropium/Albuterol Neb 3 ML IH ONE (07:42)
[2021-01-21] MEDS ORDERED: methylPREDNISolone 125 MG/2 ML VIAL IVP ONE (07:42)
[2021-01-21] MEDS ORDERED: *HR* LORazepam 2 MG/ML VIAL IVP ONE ×3 (08:02→22:36)
[2021-01-21 08:36] LABS: Hemoglobin 12.3 g/dL (11.5-15.4)
[2021-01-21 08:52] LABS: Immature Granulocytes % 0.5 % (0-4)
[2021-01-21 08:54] LABS: Basophils # 0.1 K/mcL (0.0-0.2); Basophils % 0.9 %; Eosinophils # 0.5 K/mcL (0.0-0.6); Eosinophils % 5.1 %; Hematocrit 40.8 % (35.3-44.9); Immature Platelets 1.1 % (1.1-6.1); Lymphocytes # 2.5 K/mcL (0.6-4.6); Lymphocytes % 24.1 %; Mean Corpuscular HGB Conc 30.1 g/dL (31.6-35.5); Mean Corpuscular Volume 89.5 fL (83.0-100.0); Mean Platelet Volume 8.6 fL (9.4-12.4); Monocytes # 0.7 K/mcL (0.0-1.3); Neutrophils # 6.4 K/mcL (1.6-8.9); Platelet Count 297 K/mcL (140-400); Red Blood Count 4.56 M/mcL (3.82-4.97); Red Cell Distribution Width 14.8 % (11.5-14.5); Segmented Neutrophils % 62.4 %; White Blood Count 10.3 K/mcL (4.3-11.1)
[2021-01-21 08:58] LABS: BUN/Creatinine Ratio 18 (6-26); Blood Urea Nitrogen 17 mg/dL (8-23); Calcium 9.6 mg/dL (8.6-10.3); Carbon Dioxide 30 mEq/L (23-29); Chloride 101 mEq/L (98-107); Glucose 91 mg/dL (70-105); Osmolality,Calculated 287 (280-300); Sodium 138 mEq/L (136-145); Troponin I < 0.03 ng/mL (< 0.04); eGFR For African Americans > 60 (> 60); eGFR For Non-African Americans 58 (> 60)
[2021-01-21] MEDS ORDERED: Naloxone 0.4 MG/ML INJ IVP PRN (11:26)
[2021-01-21] MEDS ORDERED: Ondansetron ODT 4 MG TAB.RAPDIS SL PRN (11:26)
[2021-01-21] MEDS: Azithromycin 500 MG in 0.9 % Sodium Chloride 250 ML IVPB SCH (13:45)
[2021-01-21] MEDS: Ipratropium/Albuterol Neb 3 ML IH SCH ×4 (13:50→23:28)
[2021-01-21] MEDS: Loratadine 10 MG TABLET PO SCH (14:18)
[2021-01-21] MEDS: Fluticasone Propionate Nasal 50 MCG/SPRAY BOTTLE NS SCH (14:18)
[2021-01-21 17:05] LABS: VBG HCO3 27 mEq/L (21-27); VBG PCO2 44 mmHg (41-51); VBG PO2 93 mmHg (25-50)
[2021-01-21] MEDS ORDERED: MethylPREDNISolone 40 MG/ML VIAL IVP SCH (18:00)
[2021-01-22] MEDS: Ipratropium/Albuterol Neb 3 ML IH SCH ×5 (03:40→20:36)
[2021-01-22] MEDS: Benzonatate 100 MG CAPSULE PO PRN ×2 (04:02→17:50)
[2021-01-22] MEDS: *HR* Enoxaparin 40 MG/0.4 ML SYRINGE SQ SCH (05:24)
[2021-01-22 07:16] LABS: Hematocrit 38.2 % (35.3-44.9); Hemoglobin 11.6 g/dL (11.5-15.4); Mean Corpuscular HGB Conc 30.4 g/dL (31.6-35.5); Mean Corpuscular Hemoglobin 26.7 pg (28.0-33.3); Mean Platelet Volume 8.4 fL (9.4-12.4); Platelet Count 278 K/mcL (140-400); Red Blood Count 4.34 M/mcL (3.82-4.97); Red Cell Distribution Width 14.7 % (11.5-14.5); White Blood Count 9.8 K/mcL (4.3-11.1)
[2021-01-22 07:34] LABS: BUN/Creatinine Ratio 24 (6-26); Blood Urea Nitrogen 23 mg/dL (8-23); Calcium 9.9 mg/dL (8.6-10.3); Carbon Dioxide 29 mEq/L (23-29); Chloride 99 mEq/L (98-107); Glucose 132 mg/dL (70-105); Osmolality,Calculated 288 (280-300); Potassium 4.4 mEq/L (3.5-5.1); Sodium 136 mEq/L (136-145); eGFR For African Americans > 60 (> 60); eGFR For Non-African Americans 59 (> 60)
[2021-01-22] MEDS: Budesonide/Formoterol 160/4.5 1 PUFF INH IH SCH ×2 (07:40→20:36)
[2021-01-22] MEDS ORDERED: MethylPREDNISolone 40 MG/ML VIAL IVP SCH (08:00)
[2021-01-22] MEDS: Loratadine 10 MG TABLET PO SCH (08:46)
[2021-01-22] MEDS: Fluticasone Propionate Nasal 50 MCG/SPRAY BOTTLE NS SCH (08:46)
[2021-01-22] MEDS ORDERED: [UNRECOGNIZED DRUG - REMARK] PO SCH (09:00)
[2021-01-22] MEDS: Azithromycin 500 MG in 0.9 % Sodium Chloride 250 ML IVPB SCH (12:07)
[2021-01-22] MEDS: MethylPREDNISolone 40 MG/ML VIAL IVP SCH (17:50)
[2021-01-22] MEDS: Acetaminophen 325 MG TABLET PO PRN (19:24)
[2021-01-23] MEDS: Ipratropium/Albuterol Neb 3 ML IH SCH ×3 (00:05→07:41)
[2021-01-23] MEDS: Acetaminophen 325 MG TABLET PO PRN (05:31)
[2021-01-23] MEDS: Benzonatate 100 MG CAPSULE PO PRN (05:31)
[2021-01-23] MEDS: *HR* Enoxaparin 40 MG/0.4 ML SYRINGE SQ SCH (05:32)
[2021-01-23] MEDS: MethylPREDNISolone 40 MG/ML VIAL IVP SCH (05:48)
[2021-01-23 07:38] VITALS: BP 126/73
[2021-01-23] MEDS: Budesonide/Formoterol 160/4.5 1 PUFF INH IH SCH (07:42)
[2021-01-23] MEDS: Loratadine 10 MG TABLET PO SCH (08:08)
[2021-01-23] MEDS: Fluticasone Propionate Nasal 50 MCG/SPRAY BOTTLE NS SCH (08:10)
[2021-01-23] MEDS ORDERED: hydroCHLOROthiazide 25 MG TABLET PO SCH (09:00)
== END 2021-01-23 10:53 | disposition home or self-care (01) ==
LOC: 2ANU 07:30 → EMEROOARM 07:30 → SUATTDRO 10:05 → 2ANU 10:10
PROVIDERS: ADMIT Internal Medicine; ATTEND Internal Medicine